=== PATIENT | female | born 1995 | race African-American/Black ===

== ENCOUNTER → 2022-11-11 16:17 | Outpatient (CLI) | payer OTHER, SELFPAY ==
[2022-11-11 17:29] LABS: Add Manual Diff / Slide Review NO; Basophils Absolute Auto 0 /uL (0-100); Basophils Percent Auto 0.3 % (0-2); Eosinophils Absolute Auto 100 /uL (0-450); Eosinophils Percent Auto 1.4 % (2-4); Hemoglobin 12.5 g/dL (12.0-16.0); Lymphocytes Absolute Auto 1900 /uL (1100-4500); Lymphocytes Percent Auto 18.7 % (25-40); Mean Corpuscular HGB Conc 34.7 % (30-36); Mean Corpuscular Hemoglobin 31.2 PG (26-34); Mean Corpuscular Volume 89.7 fL (80-100); Monocytes Absolute Auto 600 /uL (0-900); Monocytes Percent Auto 6.3 % (3-14); Neutrophils Absolute Auto 7500 /uL (1500-7000); Neutrophils Percent Auto 73.3 % (50-75); Platelet Count 163 X10^3/uL (150-400); Red Blood Cell Count 4.01 X10^6/uL (4.0-5.2); White Blood Cell Count 10.2 X10^3/uL (4.5-11.0)
[2022-11-11 18:03] LABS: Hepatitis B Surface Antigen NEGATIVE s/c (NEGATIVE)
[2022-11-11 18:28] LABS: HIV 1 & 2 Ab/Ag 4th Gen Combo NEGATIVE (NEGATIVE); Hep C Virus Ab w/Reflex Quant NEGATIVE s/c (NEGATIVE)
[2022-11-12 07:50] LABS: Varicella IgG Antibody 1070 index (Immune >165)
[2022-11-13 03:09] LABS: RPR Screen Non Reactive (Non Reactive)
== END ==
PROVIDERS: Referring Provider Obstetrics & Gynecology; Visit Provider Obstetrics & Gynecology
DX: Z34.01 Encounter for supervision of normal first pregnancy, first trimester (principal)
CPT/HCPCS: 36415; 80055; 86787; 86803; 86850; 86900; 86901; 87086; 87389

== ENCOUNTER → 2022-11-21 15:44 | Outpatient (CLI) | payer OTHER, SELFPAY ==
[2022-11-21 20:16] LABS: Urine N gonorrhoeae NOT DETECTED
[2022-11-21 21:33] LABS: Urine Chlamydia NOT DETECTED
== END ==
PROVIDERS: Visit Provider Obstetrics & Gynecology
DX: Z34.01 Encounter for supervision of normal first pregnancy, first trimester (principal); Z3A.13 13 weeks gestation of pregnancy
CPT/HCPCS: 87491; 87591

== ENCOUNTER → 2022-12-19 16:37 | Outpatient (CLI) | payer OTHER, SELFPAY ==
[2022-12-21 19:36] LABS: AFP Value 39.7 ng/mL (.); Gest Age on Col Date 17.3 weeks (.); Insulin Dep Diabetes No (.); OSBR Risk 1IN 10000 (.); Results Report (.); Test Results *Screen Negative* (.)
[2022-12-26 16:51] LABS: Glucose-6-Phosphate Dehydrogen 300 (155-399)
== END ==
PROVIDERS: Referring Provider Obstetrics & Gynecology; Visit Provider Obstetrics & Gynecology
DX: Z34.02 Encounter for supervision of normal first pregnancy, second trimester; Z3A.16 16 weeks gestation of pregnancy
CPT/HCPCS: 36415; 82105; 82955; 85041

== ENCOUNTER → 2023-01-21 07:49 | Outpatient (CLI) | payer OTHER, SELFPAY ==
--- NOTE | 2023-01-21 07:49 | DI.US.S_ITS ---
PROCEDURE: US OB >= 14 WEEKS FETUS INDICATIONS: ANATOMY OUTSIDE/PRIOR DATING DATA: Last menstrual period (LMP): 08/20/2019. LMP-based estimated date of delivery (MYAH): 05/19/2023. First dating scan (date and location): 01/21/2023 at . Estimated date of delivery (MYAH): 06/03/2023. TECHNIQUE: Real-time scanning was performed of the fetus, with image documentation and biometric measurements. COMPARISON: [facility], OB <= 14 WEEKS FETUS, 11/21/2022, 16:15. [facility], , OB <= 14 WEEKS FETUS, 10/23/2022, 15:32. FINDINGS: General: A single living intrauterine gestation is present. Presentation: Variable. Placenta: Placental position is anterior , without previa. Amniotic fluid index: 15.7 cm; largest pocket 4.4 cm. Single deepest vertical pocket is 136 cm. heart rate: 136 beats per minute. Maternal cervical canal: 4.4 cm long. Normal lower limit is 2.5 cm. biometrics: Biparietal diameter: 21 weeks 1 day Head circumference: 20 weeks 4 days Abdominal circumference: 20 weeks 4 days Femur length: 21 weeks 1 Clinically estimated gestational age: 21 weeks 0 day Composite gestational age from present scan: 20 weeks 6 days Estimated weight and percentile: 379 g; 35% for gestational age. Anatomic survey: Neuro: Ventricles are non-dilated at less than 10 mm. Cisterna magna is normal at 3-11 mm. Cerebellum is normal in size and morphology. Nuchal skin fold: Normal at less than 6 mm between 14-21 weeks gestational age. Face: Nose and lips, facial profile are normal. Spine: No evidence for spina bifida. Heart: 4-chambered heart is present, with normal ventricular outflow tracts. Diaphragm: Diaphragm is intact. Stomach: Left-sided stomach is present. Kidneys: No hydronephrosis. Normal is less than 5 mm in 2nd trimester, less than 7 mm in 3rd trimester. Cord: 3-vessel cord has orthotopic insertion. Bladder: Normal in size. Extremities: All 4 extremities identified. IMPRESSION: 1. A single living intrauterine gestation with appropriate interval growth. 2. Normal anatomic survey. We strive to produce accurate, complete, and clear reports of imaging services. To assist us in improving patient care, this report was composed using standard report templates and voice recognition software. Therefore, it may contain abnormal punctuation, insertions and/or omissions. Occasional wrong-word or sound-alike substitutions may occur. Though we review the report and make efforts to correct it, we do recommend that the report be read carefully in proper context to recognize any text inaccuracies. Dictated by: Mathew Gonsales M.D. on 01/21/2023 at 13:14 Approved by: Mathew Gonsales M.D. on 01/21/2023 at 13:18
== END ==
PROVIDERS: Referring Provider Obstetrics & Gynecology; Visit Provider Obstetrics & Gynecology
DX: Z34.02 Encounter for supervision of normal first pregnancy, second trimester (principal); Z3A.20 20 weeks gestation of pregnancy
CPT/HCPCS: 76811

== ENCOUNTER → 2023-02-24 12:34 | Outpatient (CLI) | payer OTHER, SELFPAY ==
[2023-02-24 15:04] LABS: Hematocrit 34.2 % (36-46); Hemoglobin 11.7 g/dL (12.0-16.0)
[2023-02-24 15:44] LABS: GTT (PREG) 1 Hour PP 50gm Dose 101 mg/dL (76-139)
== END ==
PROVIDERS: Referring Provider Obstetrics & Gynecology; Visit Provider Obstetrics & Gynecology
DX: Z34.02 Encounter for supervision of normal first pregnancy, second trimester (principal); Z3A.26 26 weeks gestation of pregnancy
CPT/HCPCS: 36415; 82950; 85014; 85018

== ENCOUNTER → 2023-04-14 12:54 | Outpatient (CLI) | payer OTHER, SELFPAY | PROVIDERS: Visit Provider Obstetrics & Gynecology | DX: Z34.03 Encounter for supervision of normal first pregnancy, third trimester (principal); Z3A.32 32 weeks gestation of pregnancy | CPT/HCPCS: 87086 ==

== ENCOUNTER → 2023-05-12 11:45 | Outpatient (CLI) | payer OTHER, SELFPAY ==
[2023-05-13 14:17] LABS: Strep Grp B PCR NEG for Grp B Strep
== END ==
PROVIDERS: Visit Provider Obstetrics & Gynecology
DX: Z34.03 Encounter for supervision of normal first pregnancy, third trimester (principal); Z3A.36 36 weeks gestation of pregnancy
CPT/HCPCS: 87653

== ENCOUNTER 2023-06-06 12:53 | Observation (INO) | payer OTHER, SELFPAY | END 2023-06-06 13:30 | disposition home or self-care (01) | PROVIDERS: Admitting Provider Obstetrics & Gynecology; Referring Provider Obstetrics & Gynecology; Visit Provider Obstetrics & Gynecology | DX: O48.0 Post-term pregnancy (principal); O47.1 False labor at or after 37 completed weeks of gestation; Z3A.40 40 weeks gestation of pregnancy | CPT/HCPCS: 59025; G0378; G0379 ==

== ENCOUNTER 2023-06-06 19:58 | Observation (INO) | payer OTHER, SELFPAY ==
[2023-06-06] MEDS: hydrOXYzine 50 MG/ML INJ 25 MG IM (20:58)
[2023-06-06] MEDS: MORPHINE 10 MG/ML INJ IM (20:58)
== END 2023-06-06 21:30 | disposition home or self-care (01) ==
LOC: LABOR 20:00
PROVIDERS: Admitting Provider Obstetrics & Gynecology; Referring Provider Obstetrics & Gynecology; Visit Provider Obstetrics & Gynecology
DX: O48.0 Post-term pregnancy (principal); O47.1 False labor at or after 37 completed weeks of gestation; Z3A.40 40 weeks gestation of pregnancy
CPT/HCPCS: 59025; 96372; G0378; G0379; J2270; J3410

== ENCOUNTER 2023-06-07 02:21 | Inpatient (IN) | payer OTHER, SELFPAY ==
[2023-06-07 03:22] VITALS: BP 110/69
--- NOTE | 2023-06-07 03:23 | P.HPOB_ITS ---
OB HPI Date/Time Date of admission: 06/07/23 Date Patient Seen: 06/07/23 Time Patient Seen: 03:23 History of Present Condition Chief complaint: labor : 1 Para: 0 Estimated Date of Delivery: 06/03/23 Estimated Gestational Age (weeks): 40 4/7 Narrative: Lesly Medeiros is a 27 year old female Comments: Patient is a 27-year-old primigravida with a due date of the 03 of June. She was seen yesterday evening at labor and delivery at which time she was noted to be finger tip. She was having contractions but not at this point amenable. She was sent home she states when she got home roughly 10 30 she spontaneously ruptured her membranes. About 145 the pain became much more pronounced and she decided to come into labor and delivery. Upon arrival she was noted to be 8 cm 100% effaced and -2. She has been having some early decelerations at this point she is requesting an epidural. The remainder of OB care has been unremarkable at this time. She is noted to be group B strep negative she is A positive. History of Present care: good care Dating criteria: LMP confirmed by 1st trimester US (Eight week ultrasound) Ultrasounds: normal mid trimester US Obstetrical complications: none Preadmission Labs Blood type: A (+) positive -: Antibody screen: negative, GBS status: negative and HBsAG: negative -: Chlamydia screen: not detected and Gonorrhea screen: not detected -: Rubella: immune and Varicella: immune 1 hr GTT: 101 Prior (ies) History: none Evaluation Evaluation Variability: Average (6-10) monitor accelerations: Present Monitor Decelerations: Early (Currently resolved) Contraction Frequency (minutes): 2 Uterine Contraction Intensity: Strong/Firm Category of Tracing: Reactive Status: Category l Dilation: >/=5 cm Effacement: >/=80% station: 0 Position of cervix: anterior Consistency: soft Hernandez score: 12 [facility] Medical History Breast fibroadenoma Surgical History (Updated 10/11/22 @ 20:01 by Carolin Lozano) Anesthesia [place] teeth extracted H/O breast biopsy Family History (Updated 10/03/22 @ 13:34 by Malissa Doty RN) Mother Ovarian cyst Migraine Father Hypertension Social History marital status: number of children: 0 lives independently: Yes caregiver/support person: No housing: apartment pets and animals: No education level: college (some college) 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) current occupational exposures/hazards: Yes special colby needs: No travel history: recent (domestic only) seatbelt use: always water heater temp set < 120 deg: Yes working smoke detector in home: Yes fire extinguisher in home: Yes carbon monox detector in home: Yes firearms in home: Yes firearms unloaded and locked: Yes do you feel safe at home: Yes Smoking Status: Never smoker second hand exposure: No alcohol intake: former (rarely when not ) substance use type: does not use during the past year weight has: decreased > 10 lbs (increased activity) well-balanced diet: daily or most days daily servings fruits/ve-4 caffeine: Yes (AM cup of coffee) Type(s) of exercise: other (physical work) Meds Home Medications and Allergies Home Medications Medication Instructions Recorded Confirmed Type prenat.vits,angy,xjr-pmbz-hqqdj 1 tab PO DAILY 10/23/22 06/02/23 History ondansetron 4 mg disintegrating 4 mg PO Q6H PRN nausea and 11/21/22 06/02/23 Rx tablet vomiting #20 tabs Allergies Allergy/AdvReac Type Severity Reaction Status Date / Time No Known Drug Allergies Allergy Unverified 06/02/23 13:05 OB Exam Vital signs Blood Pressure: 126/74 Pulse Rate: 73 Eyes General: appearance normal, both eyes and all related structures Resp Effort & Inspection: normal respiratory effort Auscultation: clear to auscultation bilaterally Cardio Rate: regular rate and bradycardic Rhythm: regular rhythm GI Inspection: normal to inspection External Female Exam: Yes normal external appearance Speculum Exam - Cervix: cervical os open OB/External & Speculum: cervical os open Presentation: vertex Amniotic Fluid: clear Objective Labs 06/07/23 03:00 Assessment and Plan Assessment and Plan Assessment and Plan narrative: 27-year-old female at 40 weeks and 4 days. She is in active labor at this time. She is requesting an epidural for labor analgesia. The monitoring strip is adequate at this time as soon as she becomes complete we will allow her to start pushing. Time Spent with Patient Total time spent with greater than 50% in coordination of care (as documented) at patient's floor/unit and/or counseling patient:: 15-24 minutes
[2023-06-07 03:30] LABS: Add Manual Diff / Slide Review NO; Basophils Absolute Auto 100 /uL (0-100); Basophils Percent Auto 0.4 % (0-2); Eosinophils Absolute Auto 100 /uL (0-450); Eosinophils Percent Auto 0.3 % (2-4); Hematocrit 39.2 % (36-46); Hemoglobin 13.1 g/dL (12.0-16.0); Lymphocytes Absolute Auto 1200 /uL (1100-4500); Lymphocytes Percent Auto 7.6 % (25-40); Mean Corpuscular HGB Conc 33.5 % (30-36); Mean Corpuscular Hemoglobin 30.4 PG (26-34); Monocytes Absolute Auto 800 /uL (0-900); Monocytes Percent Auto 5.3 % (3-14); Neutrophils Absolute Auto 13700 /uL (1500-7000); Neutrophils Percent Auto 86.4 % (50-75); Platelet Count 136 X10^3/uL (150-400); Red Blood Cell Count 4.31 X10^6/uL (4.0-5.2); Red Cell Distribution Width 14.1 % (11.6-14.8); White Blood Cell Count 15.9 X10^3/uL (4.5-11.0)
[2023-06-07 03:37] VITALS: BP 126/74; PULSE 73
[2023-06-07 05:02] VITALS: BP 112/57; PULSE 71; RESP 16; TEMP 36.8
--- NOTE | 2023-06-07 06:30 | PM.OBPNLAB ---
Date/Time Date Patient Seen: 06/07/23 Time Patient Seen: 06:31 Pain Control Pain control: epidural Comments: Excellent pain control. Pelvic Exam Dilation (cm): 10 Effacement (%): 100 station: +2 Amniotic membrane status: Ruptured Contractions Date/Time contractions began: 06/06/12 Contractions on admission: regular Monitor mode: External Contraction pattern: Regular Contraction phase: Resting Contraction intensity: Strong/Firm Status status: Category ll Heart Rate Baseline: 147 Monitor Accelerations: Episodic Monitor Decelerations: Episodic (About every 5 to 7 minutes. Down to the 70s and 90s responds spontaneously) Monitor Variability: Moderate Assessment and Plan Plan: continuous present management Comments: Patient pushing with every other contraction. Head is progressing is currently +2.
--- NOTE | 2023-06-07 07:50 | PM.OBPNLAB ---
Date/Time Date Patient Seen: 06/07/23 Time Patient Seen: 07:50 Pain Control Pain control: epidural Pelvic Exam Dilation (cm): 10 Effacement (%): 100 station: +2 (Cap it is almost +3 head is sending.) Amniotic membrane status: Ruptured Contractions Monitor mode: External Contraction pattern: Regular Contraction phase: Resting Contraction intensity: Strong/Firm Status status: Category ll Heart Rate Baseline: 148 Monitor Accelerations: Absent Monitor Decelerations: Episodic Monitor Variability: Moderate Comments: Decelerations occur with roughly every 3rd to 5th contraction Assessment and Plan Assessment: active labor Plan: continuous present management Comments: Head is descended down the pelvis. She is been pushing for roughly the last 2 hours. If we lose aolt-ek-hnja variability the decelerations become more severe will take to .
[2023-06-07] MEDS: OXYTOCIN PREMIX 30 UNIT/500 ML PLAST..BAG 200 UNIT IV (08:40)
--- NOTE | 2023-06-07 09:20 | P.PCNOB_ITS ---
Labor & Delivery Delivery date: 06/07/23 Intrapartal Events: Prolonged 2nd Stage > 2.5 hours and Deceleration (Patient's 2nd stage was complicated with episodes of bradycardia running down to the 90s some to the 60s these returned with good bzuu-ur-zehi variability. However toward the end of her labor she was developing a tachycardia with some loss of adds-nd-biis variability. I discussed with the patient ) Delivery monitor: external FHT Route of delivery: vacuum extraction (Vacuum was placed at 0816. The head was +3. I pulled through 3 contractions allowing the vacuum to relax between contractions on the 3rd and final contraction the head was brought to however the vacuum did pop off. The final pole was at 8:24 a.m.. At 8:25 a.m. she delivered the head. T) Indication for instrumentation: nonreassuring FHR tracing Episiotomy description: Midline (Second degree.) L&D Laceration Description: None Delivery repair: vicryl Estimated blood loss (mL): 300 Anesthesia Type: Epidural (Excellent pain control.) Complications: At time of delivery second-degree meconium was noted. 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 Plan for aftercare: Routine care
[2023-06-07] MEDS: IBUPROFEN 600 MG TABLET PO ×2 (09:33→20:47)
[2023-06-07] MEDS: DOCUSATE 100 MG CAPSULE PO (09:34)
[2023-06-07] MEDS: ACETAMINOPHEN 325 MG TABLET 650 MG PO ×2 (09:34→20:47)
--- NOTE | 2023-06-07 09:47 | RT ---
Called to L&D for decel's, infant warmer on with suction, taylor puff20/5 and bag mask unit at [facility] functional. delivered and recieved, dried and suctioned. good tone and color, baby crying, with no nasal flaring or retractions noted, released by Rn and MD. Cord gases being done and results to .
[2023-06-08] MEDS: ACETAMINOPHEN 325 MG TABLET 650 MG PO ×2 (03:02→11:19)
[2023-06-08] MEDS: IBUPROFEN 600 MG TABLET PO ×2 (03:03→11:19)
--- NOTE | 2023-06-08 06:30 | P.DS_ITS ---
Discharge Providers Provider Date of admission: 06/07/23 02:21 Discharge Date: 06/08/23 Primary care physician: Bret AHN Provider Consults: 06/07/23 03:02 Consult to Anesthesiology Urgent Comment: Consulting Provider: Otto Chance Reason for consultation: Epidural 06/08/23 09:14 Consult to Computer Network Specialist Routine Comment: Discharge provider: Otto Chance MD Summary Hospital Course Date Patient Seen: 06/08/23 Time Patient Seen: 06:30 Diagnoses: Status post vaginal delivery with vacuum. Hospital Course: Patient was admitted. She progressed well she became complete. During the 2nd stage of labor she developed deep variable decelerations however the baseline remained in the normal range there was gpjm-zi-ogsd variability. When she became +3 vacuum was placed pulled through 3 contractions. A second-degree episiotomy was cut to expedite delivery. The head of the was delivered without difficulty. Apgars were 6 and 8. The infant has done well mother has recovered well her pain is 2 to 3/10 and taking only Tylenol and Motrin. Peripartum Data Infant Delivery Method: Assisted Delivery (Vacuum assisted delivery) Episiotomy description: Midline (Second-degree midline) complications: none Discharge Diagnosis (1) Vacuum-assisted vaginal delivery: Start Date: 06/07/23 Status: Acute Problem Details: Patient is healing quite well at this time she is ambulating her pain is minimal. She has good control of bowel and bladder. Time Spent with Patient Time attestation: Total time spent providing and/or coordinating discharge services: Time spent: Greater than 30 minutes (I have discussed with her its advantages I have discussed also the issues of mastitis and endometritis. We are recommended 6 weeks of pelvic rest.) Objective Labs 06/07/23 03:00 Exam Const General: cooperative and healthy appearing Nutritional Appearance: average body habitus Orientation: alert, awake and oriented x3 HENMT Head: normocephalic Ears: hearing grossly normal bilaterally Eyes General: appearance normal, both eyes and all related structures Resp Effort & Inspection: normal respiratory effort Auscultation: clear to auscultation bilaterally Cardio Rate: regular rate Rhythm: regular rhythm GI Palpation: soft and mass (Uterus is at the level of the umbilicus in minimally tender) Neuro General: patient alert, patient awake and patient oriented x3 Discharge Plan Discharge Plan Patient Disposition: Home Provider Discharge Comment: All with fever, chills, or bleeding vaginally more than a pad in an hour Ibuprofen 600 mg every 6 hours as needed for cramping Tylenol 650 mg every 6 hours as needed for pain Push oral fluid Continue vitamins Discharge orders & Medications Prescriptions: Continued prenat.vits,angy,sab-buwe-ozbpt Tablet 1 tab PO DAILY Discontinued ondansetron 4 mg tablet,disintegrating 4 mg PO Q6H PRN (Reason: nausea and vomiting) Qty: 20 3RF Follow up/Referrals: Emerald Sandra MD [Physician] - (My office will call tomorrow to schedule 6 week visit) Diet/Activity/Treatments Diet: Regular Activity: Nothing in the vagina for 6 weeks Skin/Wound/Dressing Care Report to your healthcare provider any signs of infection, such as:: chills, fever, increased pain and unusual drainage Visit Report/Discharge Packet Instructions: DI for Labor and Delivery, Vaginal Stand Alone Forms: Patient Portal/API, Stroke Signs & Symptoms Discharge Data Primary Care Provider: Bret Hassan
[2023-06-08] MEDS: DOCUSATE 100 MG CAPSULE PO (11:19)
== END 2023-06-08 11:39 | disposition home or self-care (01) | DRG 807 ==
PROVIDERS: Admitting Provider Obstetrics & Gynecology; Referring Provider Obstetrics & Gynecology; Visit Provider Obstetrics & Gynecology
DX: O76 Abnormality in fetal heart rate and rhythm complicating labor and delivery (principal); O42.02 Full-term premature rupture of membranes, onset of labor within 24 hours of rupture; Z37.0 Single live birth; O63.1 Prolonged second stage (of labor); Z3A.40 40 weeks gestation of pregnancy
CPT/HCPCS: 36415; 59400; 59409; 84112; 85025; 86850; 86900; 86901; G0379; J2590